=== PATIENT | female | born 1930 | race Hispanic/Latino ===

== ENCOUNTER 2018-12-01 20:03 | Observation (INO) | payer MEDICARE ==
[2018-12-01] MEDS ORDERED: ASPIRIN 325 MG TABLET ONE (20:33)
[2018-12-01] MEDS ORDERED: NITROGLYCERIN 0.4 MG SL TAB SL ONE (20:33)
[2018-12-01 20:37] LABS: BASOPHILS % (AUTO) 0.9 % (0.0-5.0); EOSINOPHILS % (AUTO) 2.7 % (0.0-8.0); HEMATOCRIT 39.8 % (36-48); LYMPHOCYTES % (AUTO) 13.1 % (21.0-51.0); MEAN CORPUSCULAR HEMOGLOBIN 28.9 pg (27.0-33.0); MEAN CORPUSCULAR HGB CONC 32.8 g/dL (32.0-36.0); MEAN CORPUSCULAR VOLUME 88.1 fL (79-99); MONOCYTES % (AUTO) 6.8 % (3.0-13.0); NEUTROPHILS % (AUTO) 76.5 % (40.0-77.0); PLATELET COUNT (AUTO) 226 K/uL (130-400); RED BLOOD CELL COUNT(AUTO) 4.51 MIL/uL (4.00-5.50); RED CELL DISTRIBUTION WIDTH 13.8 % (11.0-15.5); WHITE BLOOD COUNT (AUTO) 8.5 K/uL (4.8-10.8)
[2018-12-01 20:54] LABS: CREATININE 0.8 mg/dL (0.5-1.5); POTASSIUM 4.3 mmol/L (3.5-5.1)
[2018-12-01 20:56] LABS: INR 0.99 (0.85-1.15); PARTIAL THROMBOPLASTIN TIME 25.7 SEC (26.3-35.5); PROTHROMBIN TIME 10.4 SEC (9.6-11.6)
[2018-12-01 21:00] LABS: BILIRUBIN,TOTAL 0.8 mg/dL (0.2-1.0); TOTAL PROTEIN, SERUM 7.6 g/dL (6.0-8.3)
[2018-12-01 21:03] LABS: B-TYPE NATRIURETIC PEPTIDE 235 pg/mL (0-100)
[2018-12-01] MEDS ORDERED: FUROSEMIDE 10 MG/ML 2ML VIAL ONE (21:56)
[2018-12-01] MEDS ORDERED: MORPHINE SULFATE 2 MG/ML 1ML SYG IV PRN (22:30)
[2018-12-01] MEDS ORDERED: CEFTRIAXONE SODIUM 1 GM IVP SCH (22:30)
[2018-12-01] MEDS ORDERED: ACETAMINOPHEN 325 MG TAB PO PRN ×2 (22:30)
[2018-12-01] MEDS ORDERED: NITROGLYCERIN 0.4 MG SL TAB SL PRN (22:30)
[2018-12-01] MEDS ORDERED: ONDANSETRON HCL 4 MG/2 ML VIAL IV PRN (22:30)
[2018-12-01 22:40] LABS: CHOLESTEROL 179 mg/dL (<200); HDL CHOLESTEROL 64 mg/dL (35-85); LDL DIRECT 87 mg/dL (0-99); TRIGLYCERIDES 99 mg/dL (30-200)
[2018-12-01] MEDS ORDERED: CEFTRIAXONE SODIUM 1 GM ONE (22:47)
[2018-12-01 22:53] LABS: HEMOGLOBIN A1C 5.9 % (4.0-6.0)
[2018-12-01 23:02] LABS: APPEARANCE,URINE Clear (CLEAR); BILIRUBIN,URINE Negative (NEGATIVE); COLOR,URINE Yellow (YELLOW); GLUCOSE, URINE (UA) Negative (NEGATIVE); KETONES,URINE Negative (NEGATIVE); LEUKOCYTE ESTERASE ,URINE Moderate (NEGATIVE); NITRATE,URINE Negative (NEGATIVE); OCCULT BLOOD,URINE Negative (NEGATIVE); PH,URINE 7.5 (5.0-8.0); PROTEIN,URINE Negative (NEGATIVE); UROBILINOGEN,URINE 0.2 mg/dL (0.2-1.0)
[2018-12-01 23:12] LABS: BACTERIA,URINE None Seen /HPF (None Seen); RBC,URINE None Seen /HPF (0-1); SQUAMOUS EPITHELIAL CELL,UR Rare /HPF (0-2); WBC,URINE 0-1 /HPF (0-1)
[2018-12-02] MEDS ORDERED: SODIUM CHLORIDE 3% FOR INHALATION 4 ML/AMP VIAL.NEB IH ONE ×3 (00:03→11:32)
[2018-12-02] MEDS ORDERED: IPRATROPIUM/ALBUTEROL SULFATE 3 ML SOLUTION IH ONE (00:03)
[2018-12-02] MEDS: IPRATROPIUM/ALBUTEROL SULFATE 3 ML SOLUTION IH SCH ×3 (00:21→11:28)
[2018-12-02 03:07] LABS: CREATINE KINASE, TOTAL 57 U/L (21-232); MYOGLOBIN 35 ng/mL (10-92); TROPONIN I < 0.04 ng/mL (0.00-0.06)
[2018-12-02] MEDS ORDERED: ACETAMINOPHEN 325 MG TAB ONE (06:18)
[2018-12-02 06:29] LABS: BASOPHILS % (AUTO) 0.9 % (0.0-5.0); EOSINOPHILS % (AUTO) 3.8 % (0.0-8.0); HEMATOCRIT 39.7 % (36-48); LYMPHOCYTES % (AUTO) 16.3 % (21.0-51.0); MEAN CORPUSCULAR HEMOGLOBIN 29.2 pg (27.0-33.0); MEAN CORPUSCULAR HGB CONC 32.6 g/dL (32.0-36.0); MEAN CORPUSCULAR VOLUME 89.5 fL (79-99); MONOCYTES % (AUTO) 8.6 % (3.0-13.0); NEUTROPHILS % (AUTO) 70.4 % (40.0-77.0); PLATELET COUNT (AUTO) 205 K/uL (130-400); RED BLOOD CELL COUNT(AUTO) 4.44 MIL/uL (4.00-5.50); RED CELL DISTRIBUTION WIDTH 13.8 % (11.0-15.5); WHITE BLOOD COUNT (AUTO) 7.4 K/uL (4.8-10.8)
[2018-12-02 06:38] LABS: CREATININE 0.7 mg/dL (0.5-1.5); POTASSIUM 3.4 mmol/L (3.5-5.1)
[2018-12-02 08:35] LABS: CREATINE KINASE, TOTAL 47 U/L (21-232); MYOGLOBIN 52 ng/mL (10-92); TROPONIN I < 0.04 ng/mL (0.00-0.06)
[2018-12-02] MEDS ORDERED: METOPROLOL TARTRATE 25 MG TAB PO SCH (09:00)
[2018-12-02] MEDS ORDERED: FAMOTIDINE 20MG TAB 20 MG TAB PO SCH (09:00)
[2018-12-02] MEDS ORDERED: ASPIRIN 325 MG TABLET PO SCH (09:00)
[2018-12-02] MEDS ORDERED: ENOXAPARIN SODIUM 30 MG/0.3 ML SQ SCH (09:00)
--- NOTE | 2018-12-02 10:09 | NUR ---
DCP: HOME Sw met with pt and daughter in law Drea Nash [phone]. Family reports that pt's son Samuel Nash lives wih and son Yoel Nash and daughter in law live next door. Pt has provider 22hrs a wk but they are currently on hold because provider was injured and pt refused a replacement. Pt is independent, has cane and shower chair, no HH. Pcp is [facility] for rx. Plan is home with family Addendum: 12/02/18 at 1014 by WILLIAM BELTRAN Amended: Links added.
[2018-12-02] MEDS ORDERED: ASPIRIN 81MG TAB.CHEW ONE (10:27)
[2018-12-02] MEDS ORDERED: FAMOTIDINE 20MG TAB 20 MG TAB ONE (10:27)
[2018-12-02] MEDS ORDERED: METOPROLOL TARTRATE 25 MG TAB ONE (10:27)
[2018-12-02] MEDS ORDERED: ENOXAPARIN SODIUM 30 MG/0.3 ML SQ ONE (10:27)
[2018-12-02 14:35] LABS: CREATINE KINASE, TOTAL 52 U/L (21-232); MYOGLOBIN 40 ng/mL (10-92); TROPONIN I < 0.04 ng/mL (0.00-0.06)
[2018-12-02] MEDS ORDERED: IBUPROFEN 600 MG TABLET PO SCH (15:15)
[2018-12-02] MEDS ORDERED: FUROSEMIDE 10 MG/ML 4ML VIAL IV SCH (15:15)
[2018-12-02] MEDS ORDERED: MO6B PO (15:18)
[2018-12-02] MEDS ORDERED: FURO20TA6 PO (15:18)
[2018-12-02] MEDS ORDERED: FUROSEMIDE 10 MG/ML 2ML VIAL ONE (15:26)
[2018-12-02] MEDS ORDERED: IBUPROFEN 200 MG TAB ONE (15:26)
[2018-12-02] MEDS ORDERED: AMLO5TAB9 PO (16:28)
[2018-12-02] MEDS ORDERED: CLOP75TA32 PO (16:28)
[2018-12-02] MEDS ORDERED: CARV12.511 PO (16:28)
[2018-12-02] MEDS ORDERED: MIRT30TA6 PO (16:28)
[2018-12-02] MEDS ORDERED: MEMA10TA20 PO (16:28)
[2018-12-02] MEDS ORDERED: ACET-66 PO (16:28)
[2018-12-02] MEDS ORDERED: PRAV40TA3 PO (16:28)
--- NOTE | 2018-12-02 17:25 | NUR ---
DISCHARGE PT DISCHARGED VIA WHEELCHAIR WITH SON LANE AND FAMILY. PT STABLE. STATES SHE STILL HAS SOME PAIN TO LEFT SIDE/LEFT UPPER BACK BUT IS TOLERABLE AND SHE IS BETTER THAN WHEN SHE FIRST CAME IN. DISCHARGE INSTRUCTIONS AND PRESCRIPTIONS GIVEN TO SON, INSTRUCTED SON TO CALL DR. DASIA DICKERSON (pt's pcp) OFFICE TO SCHEDULE APPOINTMENT WITHIN 3-4 DAYS (NEED TO SEE MD ON MON OR ). SON VERBALIZED UNDERSTANDING.
[2018-12-02] MEDS ORDERED: ATORVASTATIN CALCIUM 20 MG TABLET PO SCH (21:00)
== END 2018-12-02 17:24 | disposition home or self-care (01) ==
LOC: EDH 20:03 → EDHIP 22:19
PROVIDERS: ADMIT Internal Medicine; ATTEND Internal Medicine
DX: M94.0 Chondrocostal junction syndrome [Tietze] (principal); I11.0 Hypertensive heart disease with heart failure; I50.9 Heart failure, unspecified; E78.5 Hyperlipidemia, unspecified; G30.9 Alzheimer's disease, unspecified; E78.00 Pure hypercholesterolemia, unspecified; F02.80 Dementia in other diseases classified elsewhere, unspecified severity, without behavioral disturbance, psychotic disturbance, mood disturbance, and anxiety; Z79.899 Other long term (current) drug therapy
CPT/HCPCS: 36415 ×2; 71045; 80048; 80053; 80061; 81001; 82550 ×4; 83036; 83874 ×3; 83880; 84484 ×4; 85025 ×2; 85610; 85730; 87804 ×2; 93005; 94640 ×6; 94664; 99284; G0378 ×18; J0696; J1650; J1940 ×2

== ENCOUNTER 2020-04-18 16:28 | Emergency (ER) | payer MEDICARE ==
[~2020-04-18 16:28] MED LIST: ACET-66 PO; AMLO-257 PO; CARV12.511 PO; CLOP75TA32 PO; FURO20TA6 PO; IBUP-2088 PO; MEMA10TA55 PO; MIRT30TA6 PO; PRAV40TA3 PO
[2020-04-18] MEDS ORDERED: FAMOTIDINE 20MG TAB 20 MG TAB ONE (16:45)
[2020-04-18] MEDS ORDERED: HYDROCODONE/ACETAMINOPHEN 10/325 MG TAB ONE (16:45)
== END 2020-04-18 17:05 | disposition home or self-care (01) ==
LOC: EDH 16:28
DX: B02.9 Zoster without complications (principal); E78.00 Pure hypercholesterolemia, unspecified; I10 Essential (primary) hypertension